=== PATIENT | female | born 1965 | race Caucasian/White ===

== ENCOUNTER → 2019-04-11 09:04 | Outpatient (CLI) | payer OTHER, SELFPAY | PROVIDERS: PCP Internal Medicine; Visit Provider Internal Medicine | DX: Z12.31 Encounter for screening mammogram for malignant neoplasm of breast (principal); Z53.9 Procedure and treatment not carried out, unspecified reason ==

== ENCOUNTER → 2019-04-30 08:33 | Outpatient (CLI) | payer OTHER, SELFPAY ==
--- NOTE | 2019-04-30 | DI.US.S_ITS ---
LIMITED ULTRASOUND OF RIGHT BREAST: 04/30/2019 CLINICAL: Palpable right breast lumps. Comparison is made to exams dated: 04/30/2019 mammogram, 07/14/2015 mammogram, 07/20/2013 mammogram, 10/07/2011 mammogram, and 01/12/2008 mammogram - [facility]. Real-time and Doppler ultrasound of the right breast lower outer quadrant were performed. Suazo scale images of the real-time examination were reviewed. Targeted ultrasound at the site of the patient's palpable abnormality in the right breast at 6:30 position 5 cm from the nipple demonstrates oval indistinct heterogeneously hypoechoic tissue entirely within the skin layer of the right breast, measuring 0.5 x 0.4 x 0.2 cm in size. There is no vascularity in this area on Doppler ultrasound. No suspicious solid mass is identified. Targeted ultrasound at the site of the patient's palpable abnormality in the right breast at 6:30 position 2 cm from the nipple demonstrates a 1.5 x 1.2 x 0.7 cm oval circumscribed mass that is isoechoic to adjacent fat and demonstrates no vascularity on Doppler ultrasound. No suspicious solid mass is identified. IMPRESSION: BENIGN 1. 0.5 cm oval indistinct hypoechoic tissue entirely within the skin layer of the right breast at 6:30 position 5 cm from the nipple likely represents the sequela of a sebaceous cyst or skin edema from a resolving cyst/infection. This correlates with the site of the patient's palpable abnormality. No suspicious mass or abnormality is identified in the area of concern as indicated by the patient. Recommend clinical followup for further evaluation and management of the patient's symptoms. 2. 1.5 cm oval circumscribed mass isoechoic to adjacent fat in the right breast at 6:30 position 2 cm from the nipple likely represents a prominent fat lobule versus lipoma. This correlates with the site of the patient's palpable abnormality. No suspicious mass or abnormality is identified in the area of concern as indicated by the patient. Recommend clinical followup for further evaluation and management of the patient's symptoms. 3. No ultrasound evidence of malignancy in the imaged areas of the right breast. Return to annual screening mammography schedule recommended. The patient is advised to monitor her breasts and to return sooner for re-evaluation should she feel anything grow or change. This exam was interpreted at Station ID: [id number]. Electronically Signed By: Kwadwo Ho M.D. ecl/:04/30/2019 11:22:02 letter sent: Clinical Evaluation Ultrasound BI-RADS: 2 Benign
--- NOTE | 2019-04-30 | DI.MG.S_ITS ---
BILATERAL DIGITAL DIAGNOSTIC MAMMOGRAM 3D/2D: 04/30/2019 CLINICAL: Palpable right breast lumps, per patient. Comparison is made to exams dated: 07/14/2015 mammogram, 07/20/2013 mammogram, and 10/07/2011 mammogram - [facility]. The tissue of both breasts is heterogeneously dense. This may lower the sensitivity of mammography. There is a triangular marker overlying the skin of the lower outer right breast at anterior depth at the site of the patient's reported palpable abnormality. There is no underlying mammographic abnormality. There is a triangular marker overlying the skin of the lower outer right breast at middle depth at the site of the patient's reported palpable abnormality. There is no underlying mammographic abnormality. No significant masses, calcifications, or other findings are seen in either breast. IMPRESSION: INCOMPLETE: NEEDS ADDITIONAL IMAGING EVALUATION 1) No mammographic abnormality to correlate with the site of the patient's reported focal palpable abnormality of the lower outer right breast at anterior depth. Targeted diagnostic ultrasound recommended for further evaluation, which will be performed immediately following this exam. 2) No mammographic abnormality to correlate with the site of the patient's reported focal palpable abnormality of the lower outer right breast at middle depth. Targeted diagnostic ultrasound recommended for further evaluation, which will be performed immediately following this exam. This exam was interpreted at Station ID: [id number]. NOTE: For mammograms, a report in lay terms will be sent to the patient. Approximately 15% of breast malignancies will not be visualized mammographically. In the management of a palpable breast mass, a negative mammogram must not discourage biopsy of a clinically suspicious lesion. Electronically Signed By: Kwadwo Ho M.D. ecl/:04/30/2019 10:10:16 ACR BI-RADS Category 0: Incomplete [id number]
== END ==
PROVIDERS: PCP Internal Medicine; Visit Provider Internal Medicine
DX: R92.8 Other abnormal and inconclusive findings on diagnostic imaging of breast (principal); N63.13 Unspecified lump in the right breast, lower outer quadrant
CPT/HCPCS: 76642; 77066; G0279

== ENCOUNTER → 2020-10-20 11:39 | Outpatient (CLI) | payer OTHER, SELFPAY ==
--- NOTE | 2020-10-20 | DI.MG.S_ITS ---
BILATERAL DIGITAL SCREENING MAMMOGRAM 3D/2D WITH CAD: 10/20/2020 CLINICAL: Routine screening. Comparison is made to exams dated: 04/30/2019 mammogram, 07/14/2015 mammogram, and 07/20/2013 mammogram - [facility]. The tissue of both breasts is heterogeneously dense. This may lower the sensitivity of mammography. Current study was also evaluated with a Computer Aided Detection (CAD) system. No significant masses, calcifications, or other findings are seen in either breast. There has been no significant interval change. IMPRESSION: NEGATIVE There is no mammographic evidence of malignancy. A 1 year screening mammogram is recommended. This exam was interpreted at Station ID: [id number]. NOTE: For mammograms, a report in lay terms will be sent to the patient. Approximately 15% of breast malignancies will not be visualized mammographically. In the management of a palpable breast mass, a negative mammogram must not discourage biopsy of a clinically suspicious lesion. Electronically Signed By: Foster collado/kristy:10/21/2020 08:58:21 letter sent: Normal Exam ACR BI-RADS Category 1: Negative [id number]
== END ==
PROVIDERS: PCP Internal Medicine; Referring Provider Internal Medicine; Visit Provider Internal Medicine
DX: Z12.31 Encounter for screening mammogram for malignant neoplasm of breast (principal)
CPT/HCPCS: 77063; 77067

== ENCOUNTER → 2021-01-26 10:25 | Outpatient (CLI) | payer OTHER, SELFPAY ==
--- NOTE | 2021-01-26 10:27 | DI.US.S_ITS ---
PROCEDURE: US THYROID INDICATIONS: Nontoxic single thyroid nodule TECHNIQUE: Real-time scanning was performed of the thyroid gland, with image documentation. COMPARISON: [facility], US, THYROID, 09/22/2015, 10:38. FINDINGS: Right: Thyroid lobe measures 4.8 x 1.6 x 1.5 cm, and is homogeneous in echotexture. Left: Thyroid lobe measures 6.2 x 3.0 x 2.3 cm, and is homogenous in echotexture. Isthmus: 3-4 mm thick. Nodule number: 1 Location: Mid left lobe Size: 4.0 x 3.7 x 2.3 cm. Previously this measured 2.8 x 2.4 x 1.6 Composition: Predominantly solid Echogenicity: Isoechoic Shape: wider than tall. Margins: Smooth Echogenic foci: None Total points: 3 ACR TI-RADS category: Mildly suspicious IMPRESSION: Interval increase in size of mildly suspicious mid left lobe nodule. Recommend ultrasound-guided FNA for further assessment. ACR TI-RADS definitions and recommendations: TI-RADS 1 (benign): 0 points. FNA not needed. TI-RADS 2 (not suspicious): 2 points. FNA not needed. TI-RADS 3 (mildly suspicious): 3 points. * FNA if 2.5 cm or larger, follow up if 1.5 cm or larger (at 1, 3, and 5 years). TI-RADS 4 (moderately suspicious): 4-6 points. * FNA if 1.5 cm or larger, follow up if 1 cm or larger (at 1, 2, 3, and 5 years). TI-RADS 5 (highly suspicious): 7 points or more. * FNA if 1 cm or larger, follow up if 0.5 cm or larger (every year for 5 years). Dictated by: Ori Lopez M.D. on 01/26/2021 at 15:51 Approved by: Ori Lopez M.D. on 01/26/2021 at 15:53
== END ==
PROVIDERS: PCP Internal Medicine; Referring Provider Internal Medicine; Visit Provider Internal Medicine
DX: E04.1 Nontoxic single thyroid nodule (principal)
CPT/HCPCS: 76536

== ENCOUNTER → 2021-02-19 09:05 | Outpatient (CLI) | payer OTHER, SELFPAY ==
--- NOTE | 2021-02-19 | PATH_ITS ---
Note [facility] Accession Number: [id number] TESTS RESULT FLAG UNITS REF RANGE LAB Clinician Provided Cytology Information No. of containers..01 Other (Miscellaneous) No. of containers..00 Previously Prepared Cytology Slide LEFT THYROID NODULE DIAGNOSIS: 01 LEFT THYROID NODULE, FINE NEEDLE ASPIRATION. NEGATIVE FOR MALIGNANT CELLS. ADEQUATE FOR EVALUATION. FOLLICULAR GROUPS ARE PRESENT. BENIGN FOLLICULAR (GOITEROUS) NODULE (B[place]ESDA CATEGORY II), SEE COMMENT. COMMENT: MICROSCOPIC EXAMINATION REVEALS A MILDLY CELLULAR ASPIRATE, COMPOSED OF COLLOID AND FOLLICULAR GROUPS WITH FOCAL HURTHLE CELL CHANGES, WITHOUT SIGNIFICANT CYTOLOGIC OR ARCHITECTURAL ATYPIA. THESE FINDINGS SUPPORT A BENIGN FOLLICULAR (GOITEROUS) NODULE. CORRELATION WITH CLINICAL AND RADIOGRAPHIC FINDINGS IS RECOMMENDED. ACCORDING TO THE [place] REPORTING SYSTEM FOR THYROID CYTOPATHOLOGY, THE RISK OF MALIGNANCY IN THE CATEGORY BENIGN-CATEGORY II IS 0-3%; THEREFORE RECOMMEND CONTINUED ULTRASOUND SURVEILLANCE WITH REPEAT FNA IF THE NODULE SIGNIFICANTLY INCREASES IN SIZE. Pathologist ICD10: 01 E04.1 01 Nguyen Coronado MD, Pathologist NPI- [id number] 01 Fidel Arellano, Drum Reel Cutter ([facility]) 01 30 CC, RED, CLEAR RECIEVED: IN CYTOLYT WITH 5 ALCOHOL FIXED AND 5 QUICK STAINED SLIDES ALSO 1 RNA VIAL WAS RECEIVED FOR FURTHER TESTING. /[facility] 02/20/2021 0713 Local FLAG LEGEND: L-Low Normal,H-High Normal,LL-Alert Low,HH-Alert High <-Panic Low,>-Panic High,A-Abnormal,AA-Critical Abnormal Performed at: 01 =Z [facility] [address], [place] [address] Foster Meyer MD, Performed at: 01 [facility] [address], [place], [place] [id number] MD Foster Meyer MD Phone: [phone]
--- NOTE | 2021-02-19 09:08 | DI.US.S_ITS ---
PROCEDURE: US FINE NEEDLE ASPIRATION INDICATIONS: NODULE TECHNIQUE: The indications, alternatives, benefits, risks, and complications of the procedure were explained to the patient. Written informed consent was obtained and placed in the chart. The thyroid region was examined sonographically and a site was chosen for ultrasound guided percutaneous sampling. The skin was prepared and draped in the usual fashion, and anesthetized with 1% lidocaine infiltrated from the skin down to the thyroid gland. Multiple passes were then performed, with contents emptied into an appropriate pathology specimen container. A bandage was applied to the area of access at completion of the study. COMPARISON: None. FINDINGS: Location(s) of lesion(s) sampled: Left lobe inferior pole Hurricane: 22 and 25 gauge hypodermic needles. Number of passes: 7 Medications: 1% lidocaine for local anaesthesia. Complications: None. IMPRESSION: Successful ultrasound-guided thyroid nodule fine needle aspiration, with cytology results pending. Please see chart below for management recommendations based on cytology results. [facility] ReportingRecommendationsNon-diagnostic* Repeat US-guided FNA, with on-site cytology evaluation if possible. * Repeated non-diagnostic nodules without high suspicion US features: close observation vs surgical consult. * Consider surgery if nodule has high suspicion US features, grows >20% in 2 dimensions on followup, or patient has clinical risk factors for malignancy. Benign* If nodule has high suspicion US features: repeat US and FNA within 12 months. * If nodule has low to intermediate suspicion US features: repeat US at 12-24 months. If nodule grows (20% increase in at least 2 dimensions, with minimal increase of 2 mm or >50% change in volume), or development of new suspicious US features, then repeat FNA or continue followup. * If nodule has very low suspicion US features: followup US at >24 months. Atypia of undetermined significance, follicular lesion of undetermined significanceRepeat FNA, molecular testing, followup US, or surgical consult.Follicular neoplasm, suspicious for follicular neoplasmSurgical consult; also consider molecular testing. Suspicious for malignancySurgical consult.MalignantSurgical consult. Dictated by: Ori Lopez M.D. on 02/19/2021 at 11:54 Approved by: Ori Lopez M.D. on 02/19/2021 at 11:55
== END ==
PROVIDERS: PCP Internal Medicine; Referring Provider Internal Medicine; Visit Provider Internal Medicine
DX: E04.1 Nontoxic single thyroid nodule (principal)
CPT/HCPCS: 10005

== ENCOUNTER → 2021-02-25 11:01 | Outpatient (CLI) | payer OTHER, SELFPAY ==
[2021-02-25 12:26] LABS: COVID19 -Nasal RAPID Negative (Negative)
== END ==
PROVIDERS: PCP Internal Medicine; Visit Provider Student in an Organized Health Care Education/Training Program
DX: Z20.822 Contact with and (suspected) exposure to COVID-19 (principal)
CPT/HCPCS: 87635

== ENCOUNTER 2021-02-27 11:55 | Day surgery (SDC) | payer OTHER, SELFPAY ==
[2021-02-27] VITALS (8 sets, daily range): BP systolic 100–119; BP diastolic 53–74; PULSE 54–68; RESP 14–18; TEMP 36.3–36.8; O2SAT 98–100
--- NOTE | 2021-02-27 | PATH_ITS ---
[facility] Accession Number: [id number] . 01 Material submitted: . cecum - CECAL POLYP BIOPSY, 2MM . 01 Diagnosis: Cecal Polyp, 2 mm, Biopsy: Colonic mucosa with no diagnostic abnormality, consistent with polypoid redundancy. Negative for serrated lesion, dysplasia or malignancy. Additional step sections examined. MRV 03/05/2021 1252 Local . 01 Electronically signed: . Alfredo Rodrigues MD, PhD, Pathologist NPI- [id number] . 01 Gross description: . The specimen is received in formalin, labeled cecal polyp and consists of a 0.5 x 0.3 x 0.2 cm marshall-pink fragment of soft tissue which is entirely submitted in cassette A1. (EA:[id number]) /MRV 03/03/2021 1610 Local . 01 Pathologist provided ICD-10: K63.5 . 01 CPT . 019534 Performed at: 01 [facility] [address], [place], [place] [id number] MD Foster Meyer MD Phone: [phone]
--- NOTE | 2021-02-27 08:43 | PM.PREOP ---
Pre-operative Note COVID-19 COVID-19 status: Negative Result date/Date tested (Pos, Neg/Pending): 02/25/21 Interval Note History & Physical reviewed/Exam performed by Physician: Yes Changes to H&P: No ASA Class (for procedural sedation): II
--- NOTE | 2021-02-27 08:43 | PM.OP.ENDO ---
Operative Date/Time/Diagnoses Date of procedure: 02/27/21 Procedure Notes SCOAP/Timeout: 1:22 p.m. Procedure in detail: ENDOSCOPIST: Steffi Lara MD Sedation RN: Bernarda Weldon RN Sedation start time: 1:23 p.m. Sedation end time: 4:42 p.m. PROCEDURE: Colonoscopy with cold biopsy INDICATIONS: 1. Family history of colon cancer 2. Screening for colon cancer MEDICATION: Levsin 0.125 mg sublingual, incremental doses of Versed and fentanyl until appropriate level sedation achieved. ASA CLASS: 2 CECAL WITHDRAWAL TIME: 13 minutes COMPLICATIONS: None. EXTENT OF PROCEDURE: Cecum. QUALITY OF PREP: Good with portions of liquid stool. PROCEDURE: Prior to insertion of the colonoscope, a digital rectal examination was accomplished with circumferential palpation of the distal rectal mucosa without significant findings being noted. The high-definition pediatric colonoscope was passed into the rectum in the usual fashion and advanced over to the cecum without difficulty. The ileocecal valve, appendiceal stoma, and medial wall all could be inspected and a 2 mm polyp was seen and removed with cold biopsy forceps. ASCENDING COLON: As the colonoscope was withdrawn, care was taken to expose and inspect the haustral folds and no abnormalities were seen. HEPATIC FLEXURE: Normal, no polyps, diverticula or other abnormalities. TRANSVERSE COLON: Normal, no polyps, diverticula or other abnormalities. DESCENDING COLON: Normal, no polyps, diverticula or other abnormalities. SIGMOID COLON: Normal, no polyps, diverticula or other abnormalities. RECTUM: Normal. J maneuver was produced. There was no significant perianal disease. The J maneuver was broken. The remainder of the rectum was inspected and there was no external hemorrhoid disease. The scope was withdrawn. IMPRESSION: 1. Cecal polyp x1, 2 mm, removed with cold biopsy forceps PLAN: 1. Follow-up in clinic status post pathology results. The possibility of a missed lesion including a malignancy has been discussed with the patient previously. Potential alarm symptoms have been discussed and should be reported immediately.
[2021-02-27] MEDS: HYOSCYAMINE 0.125 MG TABLET PO (12:43)
[2021-02-27] MEDS: LACTATED RINGERS 1,000 ML 200 ML IV (12:43)
[2021-02-27] MEDS: MIDAZOLAM 5 MG/5 ML VIAL IV (13:19)
[2021-02-27] MEDS: fentaNYL 250 MCG/5 ML INJ IV (13:20)
== END 2021-02-27 14:37 | disposition home or self-care (01) ==
PROVIDERS: PCP Internal Medicine; Referring Provider Student in an Organized Health Care Education/Training Program; Visit Provider Student in an Organized Health Care Education/Training Program
PROC: 0DJD8ZZ Inspection of Lower Intestinal Tract, Via Natural or Artificial Opening Endoscopic (ICD-10-PCS; CPT 45378; principal; 2021-02-27 13:00)
DX: Z12.11 Encounter for screening for malignant neoplasm of colon (principal); Z80.0 Family history of malignant neoplasm of digestive organs; K63.5 Polyp of colon
CPT/HCPCS: 45380; J2250; J3010

== ENCOUNTER → 2021-11-05 11:16 | Outpatient (CLI) | payer OTHER, SELFPAY ==
--- NOTE | 2021-11-05 | DI.MG.S_ITS ---
BILATERAL DIGITAL SCREENING MAMMOGRAM 3D/2D WITH CAD: 11/05/2021 CLINICAL: Routine screening. Comparison is made to exams dated: 10/20/2020 mammogram, 04/30/2019 mammogram, and 07/14/2015 mammogram - [facility]. The tissue of both breasts is heterogeneously dense. This may lower the sensitivity of mammography. Current study was also evaluated with a Computer Aided Detection (CAD) system. No significant masses, calcifications, or other findings are seen in either breast. There has been no significant interval change. IMPRESSION: NEGATIVE There is no mammographic evidence of malignancy. A 1 year screening mammogram is recommended. This exam was interpreted at Station ID: [id number]. NOTE: For mammograms, a report in lay terms will be sent to the patient. Approximately 15% of breast malignancies will not be visualized mammographically. In the management of a palpable breast mass, a negative mammogram must not discourage biopsy of a clinically suspicious lesion. Electronically Signed By: Shari mansfield/kristy:11/05/2021 11:59:30 letter sent: Normal Exam ACR BI-RADS Category 1: Negative 3341F
== END ==
PROVIDERS: PCP Internal Medicine; Referring Provider Internal Medicine; Visit Provider Internal Medicine
DX: Z12.31 Encounter for screening mammogram for malignant neoplasm of breast (principal)
CPT/HCPCS: 77063; 77067

== ENCOUNTER → 2022-08-27 11:55 | Outpatient (CLI) | payer OTHER, SELFPAY ==
--- NOTE | 2022-08-27 11:56 | DI.US.S_ITS ---
PROCEDURE: US PELVIC COMPLETE INDICATIONS: ABDOMINAL BLOATING; ABDOMINAL PAIN TECHNIQUE: Real-time scanning was performed of the pelvic organs, with image documentation. Additional endovaginal scanning was necessary due to incomplete visualization of the adnexal and endometrial structures by transabdominal scanning. COMPARISON: [facility], , PELVIC COMPLETE, 08/19/2008, 3:27. FINDINGS: Uterus: Uterus is anteverted and measures 11.3 x 7.4 x 8.3 cm. The myometrium is heterogeneous. The endometrium is not visualized. There are multiple uterine fibroids including a right posterior intramural fibroid which measures 1.4 x 1.6 x 1.9 cm, a left posterior subserosal fibroid which measures 3.6 x 2.7 x 3.5 cm and a left intramural fibroid which measures 4.8 x 3.5 x 4.9 cm. Although fibroids were visualized on the comparison ultrasound dated August 19, 2008, it is unclear which of the previous fibroids correspond to the current study. 2 of these fibroids appear increased in size when compared with the prior study. Ovaries: The right ovary measures 2.2 x 1.4 x 2.1 cm, with a calculated ovarian volume of 3.4 cc. The left ovary measures is not visualized. Other: No pathologic free abdominal or pelvic fluid. IMPRESSION: 1. Fibroid uterus. When compared with the study from 2007, 2 of the fibroids have likely increased in size. Please note, continued growth of the fibroids post menopause may warrant further characterization with gynecologic protocol MRI. 2. The endometrium is not visualized. If there is a history of postmenopausal bleeding, further characterization with gynecologic protocol MRI is recommended. We strive to produce accurate, complete, and clear reports of imaging services. To assist us in improving patient care, this report was composed using standard report templates and voice recognition software. Therefore, it may contain abnormal punctuation, insertions and/or omissions. Occasional wrong-word or sound-alike substitutions may occur. Though we review the report and make efforts to correct it, we do recommend that the report be read carefully in proper context to recognize any text inaccuracies. Dictated by: Luisa Husain M.D. on 08/27/2022 at 15:37 Approved by: Luisa Husain M.D. on 08/27/2022 at 15:41
--- NOTE | 2022-08-27 11:56 | DI.US.S_ITS ---
PROCEDURE: US ABDOMEN COMPLETE INDICATIONS: ABDOMINAL BLOATING; ABDOMINAL PAIN TECHNIQUE: Real-time scanning was performed of the abdominal and retroperitoneal organs, with image documentation. COMPARISON: None. FINDINGS: Liver: Visualized portions of the liver appear normal in size and homogeneous in echotexture. Gallbladder: Gallbladder is normal in sonographic appearance without gallstones, gallbladder wall thickening, pericholecystic fluid, or abnormal sonographic Gomez's. Biliary ducts: Intrahepatic bile ducts are non-dilated. Extrahepatic bile duct caliber measures 3 mm. Normal is 6-7 mm or less in diameter, or 10 mm or less post-cholecystectomy. Pancreas: Pancreas not well visualized secondary to overlying bowel gas. Spleen: Spleen is normal in size and homogeneous in echotexture. Kidneys: Kidneys are normal in size and echotexture. Right kidney measures 11.2 cm long; left kidney measures 11.7 cm long. No hydronephrosis or nephrolithiasis. No solid masses. Aorta: Visualized aorta is normal in caliber at less than 3 cm. Iliacs: Proximal common iliac arteries are normal in caliber at less than 2.5 cm. IVC: Intrahepatic inferior vena cava is patent. Miscellaneous: No free abdominal fluid. IMPRESSION: Unremarkable sonographic evaluation of the abdomen. No acute sonographic abnormalities. Dictated by: Levon Peace M.D. on 08/27/2022 at 14:08 Approved by: Levon Peace M.D. on 08/27/2022 at 14:10
== END ==
PROVIDERS: PCP Internal Medicine; Referring Provider Internal Medicine; Visit Provider Internal Medicine
DX: R10.9 Unspecified abdominal pain (principal); R14.0 Abdominal distension (gaseous)
CPT/HCPCS: 76700; 76830; 76856

== ENCOUNTER → 2022-09-17 17:42 | Outpatient (CLI) | payer OTHER, SELFPAY ==
--- NOTE | 2022-09-17 17:43 | DI.MRI.S_ITS ---
PROCEDURE: MR PELVIS WO/W CON INDICATIONS: Leiomyoma of uterus, unspecified TECHNIQUE: Coronal HASTE, sagittal breath-hold T2 FSE; axial T1 FSE with and without fat saturation through the pelvis. Optional long- and short-axis uterine nonbreath-hold T2 FSE through the uterus. Sagittal or axial dynamic VIBE during administration of contrast. Post-contrast axial or coronal VIBE/2-D FLASH with fat saturation from the iliac crests to the symphysis. Optional diffusion weighted imaging and ADC may be performed. COMPARISON: [facility], US, US PELVIC COMPLETE, 08/27/2022, 12:21. FINDINGS: Image quality: Excellent. Uterus: The uterus is mildly enlarged secondary to several fibroids and measures 8.7 x 7.5 x 8.2 cm. The margin is lobulated. There are several myometrial and subserosal fibroids. The largest is anterior myometrial measuring 4.5 x 4.0 x 4.0 cm. The next largest is left posterior fundal measuring roughly 3.7 x 3.2 x 3.2 cm. There are seven other smaller fibroids. These demonstrate low T2 signal and, postcontrast are predominantly hypoenhancing, occasionally isoenhancing to uterine myometrium. The two dominant fibroids obscure the junctional zone and endometrium which is only seen in the cervix and lower uterine segment. The cervix appears normal with a nabothian cyst measuring 9 mm. There is no intrinsic T1 signal in any mass to suggest hemorrhage or proteinaceous degeneration. Adnexa: The right ovary has a normal appearance, immediately adjacent to the uterus. The left ovary is also normal, more anterior and superior in the pelvis and is normal containing two subcentimeter follicles. No suspicious adnexal masses. Urinary system: Bladder wall is normal in thickness. Distal ureters are non distended. Vaginal canal and urethra appear normal in morphology. Nodes and vessels: No pelvic or inguinal adenopathy by size criteria. Iliac vessels are normal in size. Bowel and peritoneum: No pathologic free pelvic fluid. Inferior colon and small bowel loops are normal in caliber. Soft tissues: No inguinal hernias. No findings of pelvic floor incompetence in the absence of provocation. Bones: Marrow demonstrates normal overall signal. IMPRESSION: 1. Multiple uterine fibroids without suspicious features. 2. Normal ovaries for postmenopausal status. 3. Obscuration of the endometrial stripe and junctional zone by fibroids. Dictated by: Shari Wyatt M.D. on 09/18/2022 at 10:49 Approved by: Shari Wyatt M.D. on 09/18/2022 at 11:05
== END ==
PROVIDERS: PCP Internal Medicine; Referring Provider Internal Medicine; Visit Provider Internal Medicine
DX: D25.2 Subserosal leiomyoma of uterus (principal); R14.0 Abdominal distension (gaseous); K59.00 Constipation, unspecified
CPT/HCPCS: 72197; A9579

== ENCOUNTER → 2022-11-07 11:14 | Outpatient (CLI) | payer OTHER, SELFPAY ==
[2022-11-07 12:06] LABS: Influenza A - CEPHEID Flu A NEGATIVE (NEGATIVE); Influenza B - CEPHEID Flu B NEGATIVE (NEGATIVE); Respiratory Syncytial Virus Negative (Negative)
[2022-11-07 12:08] LABS: COVID-19 CEPHEID 4-PLEX PCR Negative (Negative)
== END ==
PROVIDERS: PCP Internal Medicine; Visit Provider Student in an Organized Health Care Education/Training Program
DX: R05.1 Acute cough (principal); Z20.822 Contact with and (suspected) exposure to COVID-19
CPT/HCPCS: 0241U

== ENCOUNTER 2022-11-29 11:06 | Emergency (ER) | payer OTHER, SELFPAY ==
[2022-11-29 11:14] VITALS: BP 148/67; PULSE 77; RESP 16; TEMP 36.9; O2SAT 97; BMI 30.1
--- NOTE | 2022-11-29 11:14 | DI.RAD.S_ITS ---
PROCEDURE: XR SHOULDER LT MIN 2V INDICATIONS: r/o shoulder fx/dislocation TECHNIQUE: One view of the shoulder were acquired. COMPARISON: [facility], MYAH, XR SHOULDER LT MIN 2V, 11/29/2022, 11:48. FINDINGS: No fracture identified. IMPRESSION: No evidence of fracture. Dictated by: Lio Patel M.D. on 11/29/2022 at 12:11 Approved by: Lio Patel M.D. on 11/29/2022 at 12:12
--- NOTE | 2022-11-29 11:21 | ED_ITS ---
HPI - Extremity Injury (Upper) General Chief Complaint: Extremity Injury, Upper Stated Complaint: fell and hurt lt shoulder Time Seen by Provider: 11/29/22 11:18 History of Present Illness HPI narrative: Patient brought here by spouse. Patient is right-handed. Patient complains of left shoulder pain. No numbness tingling or weakness to the upper extremity or hand. Patient also has small laceration to the mid mucosal surface of the lower lip. No dental pain or injury. Patient and were trying to cut down a tree. She was pulling on a branch using a rope it slipped and she fell onto the ground. No loss of consciousness. Denies any other injuries. No recent illness no cough cold congestion fever chills. NPO since last night no nausea vomiting or diarrhea Related Data Previous Rx's Medication Instructions Recorded benzonatate 100 mg capsule 100 mg PO TID PRN cough 7 days #21 11/07/22 caps Allergies Allergy/AdvReac Type Severity Reaction Status Date / Time No Known Drug Allergies Allergy Verified 12/01/22 11:11 Review of Systems Review of Systems Narrative: GENERAL: negative chills, fatigue, malaise, fever, sweats. HEENT: negative sinus pain, ear pain, sore throat RESPIRATORY: negative dyspnea, cough CARDIOVASCULAR: negative chest pain, palpitations GASTROINTESTINAL: negative nausea, vomiting, abdominal pain : negative dysuria, frequency, hematuria MUSCULOSKELETAL: Positive muscle or bony pain SKIN: negative rash, skin lesions NEUROLOGIC: negative weakness, numbness ROS Unobtainable: All systems reviewed & are unremarkable except as noted in HPI and below Patient History Medical History (Updated 12/07/22 @ 15:04 by Berenice Shelton RN) Anemia Anxiety Glaucoma HLD (hyperlipidemia) Lichen planus Lichen sclerosus Thyroid nodule Surgical History (Updated 12/07/22 @ 15:04 by Berenice Shelton RN) Hx of colonoscopy (2014) Social History household members: spouse Smoking Status: Never smoker alcohol intake: current Smoking Status: Never smoker alcohol intake frequency: 0-2 drinks per day Substance Use Type: does not use Exam Narrative Exam Narrative: GENERAL: in no distress, not toxic not dyspneic HEAD: Normocephalic. EYES: Pupils equal round No scleral icterus. ENT: Mucous membranes moist. There is a 5 mm flap like laceration at the mid lower lip on the mucosal side. It does not cross the vermilion border. It is 3 mm deep. Nontender upper and lower teeth, no malocclusion or trismus. Denies any jaw pain. NECK: Trachea midline. CARDIOVASCULAR: Regular rate and rhythm without murmurs RESPIRATORY: Clear to auscultation. Breath sounds equal bilaterally. No wheezes, rales, or rhonchi. GASTROINTESTINAL: Abdomen soft, non-tender EXTREMITIES: Examination left upper extremity. There is a drop off anteriorly. Hand is warm soft and pink with strong hydramatic specialist and radial pulse with light touch intact deltoid and fingertips and thumb. Nontender wrist and elbow. Patient keeps arm abducted to the torso. NEURO: AOx4. SKIN: Warm and dry PSYCH: Not anxious, is cooperative Initial Vital Signs Initial Vital Signs: Vital Signs Temperature 98.4 F 11/29/22 11:14 Pulse Rate 77 11/29/22 11:14 Respiratory Rate 16 11/29/22 11:14 Blood Pressure 148/67 H 11/29/22 11:14 Pulse Oximetry 97 11/29/22 11:14 Oxygen Delivery Method 11/29/22 11:14 Procedures Orthopedic Joint Reduction Joint #1: Time of procedure: 11:56 Time Out Performed: Yes Side: left Joint Reduction Location: shoulder Analgesia: other (Fentanyl 75 mcg/Dilaudid 1 mg) Shoulder Technique Used (if applicable): traction/counter-traction Technique used: traction/counter-traction Post-reduction neuro exam: intact Post-reduction vascular: intact Post Reduction X-Ray Obtained: Yes Post Reduction X-Ray Results: reduced Splint Applied: Yes Patient Tolerated Procedure: Well Additional Comments: Note procedural sedation required Course Course Course Narrative: No new issues during course of stay Orders Ordered: Discontinued Medications Fentanyl (Fentanyl 100 Mcg/2 Ml Inj) 100 mcg IV NOW ONE Stop: 11/29/22 11:19 Last Admin: 11/29/22 11:53 Dose: 75 mcg Documented By: CTS Hydromorphone HCl (Hydromorphone 1 Mg Inj) 1 mg IV NOW ONE Stop: 11/29/22 11:45 Last Admin: 11/29/22 11:54 Dose: 1 mg Documented By: CTS Reevaluation(s) Reevaluation #1: Reviewed results with patient and and agree for discharge home. Return precautions reviewed with him. I did speak with Dr. Brian and treatment plan agreeable with patient and family. Return precautions reviewed with them. Pain is controlled. Time: 12:21 Vital Signs Vital signs: Vital Signs - 8 hr 11/29/22 11:14 11/29/22 11:49 Temperature 98.4 F Pulse Rate 77 78 Respiratory Rate 16 16 Blood Pressure 148/67 H Pulse Oximetry 97 98 Oxygen Delivery Method Room Air Room Air MDM - Extremity Injury (Upper) Differential Diagnosis Differential diagnosis: Likely dislocation of shoulder and other (Shoulder fracture/humeral fracture) Imaging Data Extremity x-ray #1: Radiologist's Impression: [address] [address] XRay Report Signed Patient: Debbie Cartagena MR#: [id number] : 1965 Acct:[id number] Age/Sex: 57 / F Date of Service: 11/29/22 Loc: ED Accession Number: [id number] ?? Procedure: XR shoulder LT min 2V Ordering Provider: Pedro Pablo Miller MD PROCEDURE:? XR SHOULDER LT MIN 2V ? INDICATIONS:? r/o shoulder fx/dislocation ? TECHNIQUE:? One view of the shoulder were acquired.? ? COMPARISON:? [facility], XR SHOULDER LT MIN 2V, 11/29/2022, 11:48. ? FINDINGS:? ? No fracture identified. ? IMPRESSION:? No evidence of fracture. ? ? Dictated by: Lio Patel M.D. on 11/29/2022 at 12:11 ? ? Approved by: Lio Patel M.D. on 11/29/2022 at 12:12 ? Extremity x-ray #2: Radiologist's Impression: [address] [address] XRay Report Signed Patient: Debbie Cartagena MR#: [id number] : 1965 Acct:[id number] Age/Sex: 57 / F Date of Service: 11/29/22 Loc: ED Accession Number: [id number] ?? Procedure: XR shoulder LT min 2V Ordering Provider: Pedro Pablo Miller MD PROCEDURE:? XR SHOULDER LT MIN 2V ? INDICATIONS:? Post reduction ? TECHNIQUE:? 3 views of the shoulder were acquired.? ? COMPARISON:? [facility], CR, XR SHOULDER LT MIN 2V, 11/29/2022, 11:36. ? FINDINGS/IMPRESSION:? Successful interval reduction. ? Dictated by: Lio Patel M.D. on 11/29/2022 at 12:13 ? ? Approved by: Lio Patel M.D. on 11/29/2022 at 12:14 ? MDM Narrative Medical decision making narrative: Patient brought here by spouse. Patient is right-handed. Patient complains of left shoulder pain. No numbness tingling or weakness to the upper extremity or hand. Patient also has small laceration to the mid mucosal surface of the lower lip. No dental pain or injury. Patient and were trying to cut down a tree. She was pulling on a branch using a rope it slipped and she fell onto the ground. No loss of consciousness. Denies any other injuries. Patient injury is concerning for fracture/dislocation, differential diagnosis as above includes but not limited to shoulder fracture/dislocation. X-ray has been ordered to evaluate. IV medication establish for pain control. At this time patient does agree for proper pain control to try for reduction passively using head of bed and flex knee and hip procedure/technique to allow for passive reduction of the left shoulder. No blood work indicated this time. Patient otherwise neurovascularly intact. The small laceration to the mucosal surface of the lower lip does not indicate for suturing as I explained with patient it will likely cause tearing of the mucosa lip and may worsen cosmetically and healing process. Dietary changes/soft diet reviewed with patient and . They agree. Tetanus is up-to-date. 12:12 p.m.. Spoke with Orthopedics, Dr. Brian, he has reviewed both x-rays of the shoulder. Patient can follow up in the office, use a sling for discharge and home use. Appropriate for discharge home. I did review images with Orthopedics. No blood work indicated. Pain is controlled at time of discharge. Patient agrees for discharge. Has a fence post driver, . Return precautions reviewed with him. Patient may continue Tylenol ibuprofen. Patient tolerating sling very well. Discharge Plan Departure Patient Disposition: Home Clinical Impression: Closed dislocation of left shoulder Instructions: DI for Shoulder Dislocation Activity Restrictions/Additional Instructions: Please use sling for comfort and immobilization until you see Dr. Brian in the office. Call tomorrow for office time as today is a holiday and office is not open. May continue ibuprofen or Tylenol for pain. Do not raise your hand above your head or behind your back. Return if worse if any questions or concerns Prescriptions: No Action benzonatate 100 mg capsule 100 mg PO TID PRN (Reason: cough) 7 Days Qty: 21 1RF Referrals: Billy Brian MD [Physician] - Fiorella Toro ARNP [Primary Care Provider] -
--- NOTE | 2022-11-29 11:47 | DI.RAD.S_ITS ---
PROCEDURE: XR SHOULDER LT MIN 2V INDICATIONS: Post reduction TECHNIQUE: 3 views of the shoulder were acquired. COMPARISON: [facility], CR, XR SHOULDER LT MIN 2V, 11/29/2022, 11:36. FINDINGS/IMPRESSION: Successful interval reduction. Dictated by: Lio Patel M.D. on 11/29/2022 at 12:13 Approved by: Lio Patel M.D. on 11/29/2022 at 12:14
[2022-11-29 11:49] VITALS: PULSE 78; RESP 16; O2SAT 98
--- NOTE | 2022-11-29 11:51 | PC.NURSE ---
pt medicated with 75mcg fentanyl and 1mg dilaudid. pt set up to passively reduce with her wrists wrapped with coban, sitting high fowlers with wrists wrapped behind L knee. Dr Miller at bedside and pt reduced successfully. XR in room for post reduction imaging. pt states immense improvement in pain. 2+ pulse +CMS. Pt advised to not lift arm above shoulder level.
[2022-11-29] MEDS: fentaNYL 100 MCG/2 ML INJ IV (11:53)
[2022-11-29] MEDS: HYDROMORPHONE 1 MG INJ IV (11:54)
== END 2022-11-29 12:25 | disposition home or self-care (01) ==
PROVIDERS: Emergency Provider Emergency Medicine; PCP Internal Medicine
DX: S43.005A Unspecified dislocation of left shoulder joint, initial encounter (principal); S01.511A Laceration without foreign body of lip, initial encounter; W18.30XA Fall on same level, unspecified, initial encounter
CPT/HCPCS: 23650; 36415; 73030; 96374; 99284; J1170; J3010

== ENCOUNTER → 2022-12-08 14:23 | Outpatient (CLI) | payer OTHER, SELFPAY ==
[2022-12-08 15:20] LABS: COVID19 -Nasal RAPID Negative (Negative)
== END ==
PROVIDERS: PCP Internal Medicine; Visit Provider Obstetrics & Gynecology
DX: Z01.812 Encounter for preprocedural laboratory examination (principal); Z20.822 Contact with and (suspected) exposure to COVID-19
CPT/HCPCS: 87635

== ENCOUNTER 2022-12-09 06:48 | Day surgery (SDC) | payer OTHER, SELFPAY ==
[2022-12-07 14:54] VITALS: BMI 30.6
[2022-12-09] VITALS (15 sets, daily range): BP systolic 82–133; BP diastolic 37–75; PULSE 53–75; RESP 10–18; TEMP 36–36.7; O2SAT 94–99; BMI 30.6
--- NOTE | 2022-12-09 | PATH_ITS ---
[facility] Accession Number: [id number] No. of containers..01 Tissue . 01 Material submitted: . uterus - BILATERAL TUBES,OVARIES,UTERUS,AND CERVIX . 01 Diagnosis: Cervix, Uterus, Bilateral Fallopian Tubes and Ovaries; Total Hysterectomy and Bilateral Salpingo-oophorectomy: Cervix: Mild, chronic cervicitis and tunnel clusters present. Endocervical glands with focal reactive tubal metaplasia present. Negative for dysplasia and malignancy. Endometrium: Predominantly non-proliferative to inactive endometrium without atypia, hyperplasia, and malignancy. Adenomyosis. Benign leiomyomas, intramural/subserosal, with hyalinized changes, without significant cytologic atypia, increased mitotic activity, or necrosis. Left fallopian tube and ovary: Benign fallopian tube and paratubal cysts. Benign ovary with cystic follicles. Right fallopian tube and right ovary: Benign fallopian tube without significant abnormalities. Benign ovary with surface inclusion cysts. Benign para-ovarian leiomyoma. Negative for malignancy. [facility] 12/13/2022 1511 Local . 01 Electronically signed: . Nguyen Coronado MD, Pathologist NPI- [id number] . 01 Gross description: . The specimen is received in formalin labeled with the patient's name, , and bilateral tubes, ovaries, uterus, and cervix, and consists of a fragmented uterus (212 grams, 11.9 x 9.2 x 5.5 cm in aggregate) with detached cervix (2.4 x 1.6 cm), attached left fallopian tube (4.2 x 0.8 cm), attached left ovary (3 grams, 1.8 x 1.2 x 1.0 cm), attached right fallopian tube (5.1 x 0.7 cm), and attached right ovary (4 grams, 2.4 x 1.0 x 1.0 cm). The ectocervix is marshall and roughened with a circular patent os measuring 0.3 cm in diameter. Orientation of the cervix cannot be determined. The parametrial margin is inked blue. The uterine serosa is marshall and smooth with a few areas of hemorrhage measuring up to 1.5 cm in greatest dimension. The endocervical canal has marshall herringbone mucosa and measures 3.3 cm in length with no areas of stricture grossly identified. The superior portion of the uterus is intact, and the portion of endometrial cavity measures 2.8 cm from cornu to cornu and 4.1 cm in length with marshall velvety endometrium that averages 0.1 cm thick. The myometrium is marshall and trabecular measuring up to 2.2 cm thick with multiple well-circumscribed white whorled nodules located intramurally, subserosally, and detached measuring up to 4.7 cm in greatest dimension. No hemorrhage, necrosis, or additional lesions are identified. . The left fallopian tube has marshall smooth serosa with multiple cystic structures measuring up to 0.2 cm in greatest dimension filled with cloudy serous fluid. Sectioning reveals an unremarkable stellate lumen. The left ovary has a marshall cerebriform external surface and sectioning reveals a thin smooth-walled cystic structure filled with clear serous fluid measuring 0.4 cm in greatest in dimension with no lesions identified. . The right fallopian tube has marshall smooth serosa with no cystic structures identified, and sectioning reveals an unremarkable stellate lumen. The right ovary has a yellow-marshall cerebriform cut surface and is significant for an adjacent marshall smooth firm nodule measuring 1.0 x 0.7 x 0.6 cm. Sectioning the ovary reveals a heterogeneous unremarkable physiologic cut surface, and sectioning the separate nodule reveals a white whorled cut surface. No additional lesions are identified. [employer] sections are submitted as follows: . A1: Cervix. A2: Anterior full-thickness section with nodule. A3: Posterior full-thickness section with nodule. A4-A5: [employer] nodules. A6: Serosa. A7: Left fallopian tube to include one-half of bisected fimbriae and cross-sections. A8: Left ovary. A9: Right fallopian tube to include one-half of bisected fimbriae and cross-sections. A10: Right ovary. A11: [employer] nodule adjacent to right ovary. ([id number]) /MRV 12/13/2022 1511 Local . 01 Pathologist provided ICD-10: D25.9, R10.2, N88.2 . 01 CPT . 933275 Specimen Comment: A courtesy copy of this report has been sent to [phone] Performed at: 01 [facility] [address] [place] [address] [address] [facility], [place], [place] [id number] MD Foster Meyer MD Phone: [phone]
[2022-12-09] MEDS: LACTATED RINGERS 1,000 ML 100 ML IV (07:15)
--- NOTE | 2022-12-09 07:37 | PM.PREOP ---
Pre-operative Note COVID-19 COVID-19 status: Negative Result date/Date tested (Pos, Neg/Pending): 12/08/22 Criteria for continued procedure: Non-surgical alternatives not available or appropriate per current SOC Interval Note History & Physical reviewed/Exam performed by Physician: Yes Changes to H&P: No
[2022-12-09] MEDS: CEFAZOLIN 2 GM/100 ML PREMIX 100 ML IV (08:05)
[2022-12-09] MEDS: BUPIVACAINE 0.5% W/ EPI (PF) 30 ML VIAL INJ (08:27)
--- NOTE | 2022-12-09 08:31 | SUR.OPER ---
Lithotomy on padded OR bed. [place] Pad Positioner under torso. Head on pillow, arms padded and tucked at sides. Legs secured in padded yellow fins stirrups.
[2022-12-09] MEDS: LACTATED RINGERS 1,000 ML 84 ML IV (09:12)
[2022-12-09] MEDS: ROPIVACAINE 0.2% PF 2 MG/ML 10ML AMP 20 ML INJ (09:23)
--- NOTE | 2022-12-09 09:46 | P.OP_ITS ---
Operative Date/Time/Diagnoses Date of procedure: 12/09/22 Time of procedure: 08:10 Pre-op diagnosis: Uterine fibroids Pelvic pressure Post-op diagnosis: same Procedure & Clinicians Procedure: Procedures Operation Date: 12/09/22 07:45 Actual Procedure Side Surgeon p Laparoscopic Total Hysterectomy w/ bilateral salingo-oophorectomy Not Applicable Ganga White MD Indications: Debbie is a 57 year old , LMP in her early 50s or presents with several month history pelvic pressure and discomfort.? She was seen back in 2006 for similar complaints and at that time was diagnosed with uterine fibroids.? A recent pelvic ultrasound performed 08/27/2022 which shows: FINDINGS:? ?? Uterus:? Uterus is anteverted and measures 11.3 x 7.4 x 8.3 cm. The myometrium is heterogeneous. ? The endometrium is not visualized.? There are multiple uterine fibroids including a right posterior intramural fibroid which measures 1.4 x 1.6 x 1.9 cm, a left posterior subserosal fibroid which measures 3.6 x 2.7 x 3.5 cm and a left intramural fibroid which measures 4.8 x 3.5 x 4.9 cm.? Although fibroids were visualized on the comparison ultrasound dated August 19, 2008, it is unclear which of the previous fibroids correspond to the current study.? 2 of these fibroids appear increased in size when compared with the prior study.? ? Ovaries:? The right ovary measures 2.2 x 1.4 x 2.1 cm, with a calculated ovarian volume of 3.4 cc. The left ovary measures is not visualized. ? Other:? No pathologic free abdominal or pelvic fluid. ? ? IMPRESSION:? ? 1. Fibroid uterus.? When compared with the study from 2007, 2 of the fibroids have likely increased in size.? Please note, continued growth of the fibroids post menopause may warrant further characterization with gynecologic protocol MRI. ? 2. The endometrium is not visualized. ? If there is a history of postmenopausal bleeding, further characterization with gynecologic protocol MRI is recommended. Follow-up pelvic MRI performed 09/17/2022 shows: FINDINGS:? Image quality:? Excellent.? ? Uterus:? The uterus is mildly enlarged secondary to several fibroids and measures 8.7 x 7.5 x 8.2 cm.? The margin is lobulated.? There are several myometrial and subserosal fibroids.? The largest is anterior myometrial measuring 4.5 x 4.0 x 4.0 cm.? The next largest is left posterior fundal measuring roughly 3.7 x 3.2 x 3.2 cm.? There are seven other smaller fibroids.? These demonstrate low T2 signal and, postcontrast are predominantly hypoenhancing, occasionally isoenhancing to uterine myometrium. ? The two dominant fibroids obscure the junctional zone and endometrium which is only seen in the cervix and lower uterine segment.? The cervix appears normal with a nabothian cyst measuring 9 mm.? There is no intrinsic T1 signal in any mass to suggest hemorrhage or proteinaceous degeneration.? ? Adnexa:? The right ovary has a normal appearance, immediately adjacent to the uterus.? The left ovary is also normal, more anterior and superior in the pelvis and is normal containing two subcentimeter follicles.? No suspicious adnexal masses. ? Urinary system:? Bladder wall is normal in thickness.? Distal ureters are non distended.? Vaginal canal and urethra appear normal in morphology.? ? Nodes and vessels:? No pelvic or inguinal adenopathy by size criteria.? Iliac vessels are normal in size.? ? Bowel and peritoneum:? No pathologic free pelvic fluid.? Inferior colon and small bowel loops are normal in caliber.? ? Soft tissues:? No inguinal hernias.? No findings of pelvic floor incompetence in the absence of provocation.? ? Bones:? Marrow demonstrates normal overall signal.? ? IMPRESSION:? ? 1. Multiple uterine fibroids without suspicious features. ? 2. Normal ovaries for postmenopausal status. ? 3. Obscuration of the endometrial stripe and junctional zone by fibroids.? The patient experienced menarche at age 13 and has had regular predictable periods throughout her adult life.? She is had 2 spontaneous vaginal births with her 1st infant weighing 10 lb 4 oz. she is experienced no postmenopausal bleeding after her last.? Her early 50s and vasomotor symptoms/night sweats etc. largely resolved completely.? Last Pap was in December 2000 and normal as have been all of her Paps during her adult life.? Patient is experiencing significant difficulty having bowel movements and has a sense of pelvic pressure associated with the uterine fibroids.? She would very much like to have the issue resolved.? After consideration of all options she has elected to proceed with total laparoscopic hysterectomy with bilateral salpingectomy and she presents today for her scheduled surgery. Surgeon: Ganga White Reconciliation Analyst: Bernarda Kurtz Anesthesia Type: General Operative Notes Findings: The uterus is 8-10 weeks in size and multiply myomatous. Both tubes and ovaries appear normal. The upper abdomen is normal to laparoscopic inspection. Closure Type: primary Specimen(s): left tube & ovary, right tube & ovary and uterus Applied: catheter Estimated blood loss (mL): 75 Blood products transfused: none Procedure in detail: With the patient in modified dorsal lithotomy position preparations were made by prepping and draping the patient in usual manner for vaginal surgery and insertion of Lebron catheter. A pre-surgical time-out was then taken in accordance with [facility] policy. A bivalve speculum was then placed in the vagina and the cervix visualized. The anterior lip of the cervix was then grasped with a single-tooth tenaculum. The uterus was sounded to 9 cm, the endocervical canal dilated slightly, and a VCare uterine manipulator with a medium colpotomy cup was placed. The umbilicus was then infiltrated with 0.5% Marcaine with epinephrine. A 1 cm umbilical incision was made transversely and a Veress needle was used to insufflate the abdominal cavity with carbon dioxide. Once the abdomen was appropriately insufflated, a 5 mm trocar and sleeve were then placed through the umbilical incision. The scope was placed through the trocar and the initial assessment of the intra-abdominal contents carried out. A 2nd and 3rd 5 mm port was then placed 1st in the right mid quadrant from then the left mid quadrant by infiltration of the skin and subcutaneous tissues, a 1 cm transverse incision and insertion of the 5 mm bladeless port. Using a 3 puncture technique, the abdomen and pelvis were inspected laparoscopy and photographically documented. Uterus is mobilized with the VCare manipulator and attention turned to the left adnexa. The distal tube was then grasped and the infundibulopelvic ligament divided after coagulation with the PowerSeal device. The dissection was then carried out across the mesosalpinx toward the cornua. The dissection was carried out using the PowerSeal device so as to divide the utero-ovarian ligament and the round ligament with blunt and sharp dissection of the broad down to the level of the uterine artery. The uterine artery was then skeletonized after development of a bladder flap, coagulated, and divided. Once hemostasis was assured on the left side attention was turned to the right and the infundibulopelvic ligament, mesosalpinx, utero-ovarian ligament, round ligament, and broad ligament were dissected in a fashion exactly the same as it had been on the left. The right uterine artery was then visualized after skeletonization and coagulated and divided. The uterus was seen to azeb after coagulation of both your arteries and the cup was identified through the vaginal muscularis at its insertion with the body of the cervix. Circumferential excision of the vaginal cup was accomplished without difficulty using monopolar current and the uterus mobilized. The uterus was then removed through the vagin a and the vaginal cuff closed [id number] with a series of 0 Vicryl [id number] stitches. Hemostasis was excellent, the abdomen was re- insufflated, and the pelvis inspected laparoscopically. The pelvis was inspected for any abnormality or bleeding, and the ureters were each seen to be peristalsing freely. With complete hemostasis assured, the pneumoperitoneum was vented and the ports removed. All of the 5 mm ports were then closed with 4-0 Monocryl on the skin using inverted interrupted sutures. Skin glue was placed and after the glue was dried, an appropriate dressing was applied. The case was then terminated, the patient awakened, and then transferred to PACU after having tolerated the procedure well. Complications: none Post-operative Condition: stable Disposition: PACU Plan for aftercare: Recovery in ambulatory surgery in discharge home later today if pain is under control and she is tolerating oral intake well.
[2022-12-09] MEDS: DEXTROSE 5%-LACTATED RINGERS 1,000 ML 100 ML IV ×2 (11:12→20:17)
[2022-12-09] MEDS: KETOROLAC 30 MG/ML VIAL IV ×2 (16:24→22:13)
[2022-12-09] MEDS: DOCUSATE 100 MG CAPSULE 200 MG PO (20:16)
[2022-12-10] MEDS: KETOROLAC 30 MG/ML VIAL IV (04:26)
[2022-12-10 04:27] VITALS: BP 126/65; PULSE 54; RESP 16; TEMP 36.9; O2SAT 98
[2022-12-10 06:14] LABS: Add Manual Diff / Slide Review NO; Basophils Absolute Auto 0 /uL (0-100); Basophils Percent Auto 0.1 % (0-2); Eosinophils Absolute Auto 0 /uL (0-450); Hematocrit 35.3 % (36-46); Hemoglobin 11.4 g/dL (12.0-16.0); Lymphocytes Absolute Auto 700 /uL (1100-4500); Lymphocytes Percent Auto 5.1 % (25-40); Mean Corpuscular HGB Conc 32.2 % (30-36); Mean Corpuscular Hemoglobin 26.9 PG (26-34); Mean Corpuscular Volume 83.4 fL (80-100); Monocytes Absolute Auto 700 /uL (0-900); Monocytes Percent Auto 5.1 % (3-14); Neutrophils Absolute Auto 12600 /uL (1500-7000); Neutrophils Percent Auto 89.7 % (50-75); Platelet Count 175 X10^3/uL (150-400); Red Blood Cell Count 4.24 X10^6/uL (4.0-5.2); Red Cell Distribution Width 13.5 % (11.6-14.8)
--- NOTE | 2022-12-10 07:40 | PM.DS.1 ---
History of Present Illness History of Present Illness Date Patient Seen: 12/10/22 Time Patient Seen: 07:40 Chief complaint: Laparoscopic Total Hysterectomy Narrative: Debbie is a 57 year old , LMP in her early 50s or presents with several month history pelvic pressure and discomfort.? She was seen back in 2006 for similar complaints and at that time was diagnosed with uterine fibroids.? A recent pelvic ultrasound performed 08/27/2022 which shows: FINDINGS:? ?? Uterus:? Uterus is anteverted and measures 11.3 x 7.4 x 8.3 cm. The myometrium is heterogeneous. ? The endometrium is not visualized.? There are multiple uterine fibroids including a right posterior intramural fibroid which measures 1.4 x 1.6 x 1.9 cm, a left posterior subserosal fibroid which measures 3.6 x 2.7 x 3.5 cm and a left intramural fibroid which measures 4.8 x 3.5 x 4.9 cm.? Although fibroids were visualized on the comparison ultrasound dated August 19, 2008, it is unclear which of the previous fibroids correspond to the current study.? 2 of these fibroids appear increased in size when compared with the prior study.? ? Ovaries:? The right ovary measures 2.2 x 1.4 x 2.1 cm, with a calculated ovarian volume of 3.4 cc. The left ovary measures is not visualized. ? Other:? No pathologic free abdominal or pelvic fluid. ? ? IMPRESSION:? ? 1. Fibroid uterus.? When compared with the study from 2007, 2 of the fibroids have likely increased in size.? Please note, continued growth of the fibroids post menopause may warrant further characterization with gynecologic protocol MRI. ? 2. The endometrium is not visualized. ? If there is a history of postmenopausal bleeding, further characterization with gynecologic protocol MRI is recommended. Follow-up pelvic MRI performed 09/17/2022 shows: FINDINGS:? Image quality:? Excellent.? ? Uterus:? The uterus is mildly enlarged secondary to several fibroids and measures 8.7 x 7.5 x 8.2 cm.? The margin is lobulated.? There are several myometrial and subserosal fibroids.? The largest is anterior myometrial measuring 4.5 x 4.0 x 4.0 cm.? The next largest is left posterior fundal measuring roughly 3.7 x 3.2 x 3.2 cm.? There are seven other smaller fibroids.? These demonstrate low T2 signal and, postcontrast are predominantly hypoenhancing, occasionally isoenhancing to uterine myometrium. ? The two dominant fibroids obscure the junctional zone and endometrium which is only seen in the cervix and lower uterine segment.? The cervix appears normal with a nabothian cyst measuring 9 mm.? There is no intrinsic T1 signal in any mass to suggest hemorrhage or proteinaceous degeneration.? ? Adnexa:? The right ovary has a normal appearance, immediately adjacent to the uterus.? The left ovary is also normal, more anterior and superior in the pelvis and is normal containing two subcentimeter follicles.? No suspicious adnexal masses. ? Urinary system:? Bladder wall is normal in thickness.? Distal ureters are non distended.? Vaginal canal and urethra appear normal in morphology.? ? Nodes and vessels:? No pelvic or inguinal adenopathy by size criteria.? Iliac vessels are normal in size.? ? Bowel and peritoneum:? No pathologic free pelvic fluid.? Inferior colon and small bowel loops are normal in caliber.? ? Soft tissues:? No inguinal hernias.? No findings of pelvic floor incompetence in the absence of provocation.? ? Bones:? Marrow demonstrates normal overall signal.? ? IMPRESSION:? ? 1. Multiple uterine fibroids without suspicious features. ? 2. Normal ovaries for postmenopausal status. ? 3. Obscuration of the endometrial stripe and junctional zone by fibroids.? The patient experienced menarche at age 13 and has had regular predictable periods throughout her adult life.? She is had 2 spontaneous vaginal births with her 1st infant weighing 10 lb 4 oz. she is experienced no postmenopausal bleeding after her last.? Her early 50s and vasomotor symptoms/night sweats etc. largely resolved completely.? Last Pap was in December 2000 and normal as have been all of her Paps during her adult life.? Patient is experiencing significant difficulty having bowel movements and has a sense of pelvic pressure associated with the uterine fibroids.? She would very much like to have the issue resolved.? After consideration of all options she has elected to proceed with total laparoscopic hysterectomy with bilateral salpingo-oophorectomy and she presents for her scheduled surgery. Discharge Providers Provider Date of admission: 12/09/2022 Discharge Date: 12/10/22 Primary care physician: LOLITA Gibbs Discharge provider: Ganga White MD Summary Hospital Course Discharge Diagnosis: Uterine fibroids S/P total laparoscopic hysterectomy with bilateral salpingo-oophorectomy Hospital Course: On the morning of 12/09/2021, the patient underwent an uneventful total laparoscopic hysterectomy with bilateral salpingo oophorectomy. Details of the procedure well summarized on my operative note of that date. Following surgery the patient has done extremely well with prompt return of bowel and bladder function, she is ambulating independently, tolerating regular diet, and her pain is well controlled with oral pain medications. She will be discharged at this time to home after counseling regarding precautionary symptoms, limitations of activity, medications, and plans for follow-up which will be in 2 weeks. Patient will use [id number] Tylenol and/or naproxen for pain relief. Status at Discharge Cognitive/behavioral status at discharge: oriented Functional status at discharge: independent ambulation Overall status at discharge: patient is progressing back to baseline Exam Vital Signs (past 8 hours): - 12/10/22 04:27 Temperature 98.4 F Pulse Rate 54 L Respiratory Rate 16 Blood Pressure 126/65 Pulse Oximetry 98 Oxygen Flow Rate 0 Oxygen Delivery Method Room Air Oxygen Flow Rate 0 Const General: cooperative and comfortable Nutritional Appearance: average body habitus Orientation: alert and oriented x3 HENMT Head: normal to inspection, atraumatic and abrasion Ears: hearing grossly normal bilaterally Face and sinus: face symmetric Eyes General: appearance normal, both eyes and all related structures Conjunctivae: conjunctivae normal Sclera: sclerae normal EOM: EOM intact bilaterally Neck Neck: normal visual inspection Resp Effort & Inspection: normal respiratory effort and able to speak in complete sentences Auscultation: clear to auscultation bilaterally Cardio Rate: regular rate Rhythm: regular rhythm Heart Sounds: S1 normal, S2 normal and no murmurs GI Inspection: normal to inspection and incision (Surgical dressings clean and dry) Palpation: soft, no hepatosplenomegaly and tender (Mild, diffuse postsurgical tenderness) Auscultation: normal bowel sounds External Female Exam: other (No significant bleeding noted) Extrem General: no calf tenderness Psych Appearance: grossly normal Mental Status: mental status grossly normal Speech and Movement: speech and movement normal Mood: congruent mood Affect: normal affect Attitude: cooperative Thought Process: normal Thought Content: normal Judgment: judgment good Objective Labs Result Diagrams: 12/10/22 05:36 Labs: Laboratory Results - last 24 hr 12/10/22 05:36 WBC 14.0 H RBC 4.24 Hgb 11.4 L Hct 35.3 L MCV 83.4 MCH 26.9 MCHC 32.2 RDW 13.5 Plt Count 175 Neut % (Auto) 89.7 H Lymph % (Auto) 5.1 L [place] % (Auto) 5.1 Eos % (Auto) 0.0 L Baso % (Auto) 0.1 Neut # (Auto) 32173 H Lymph # (Auto) 700 L [place] # (Auto) 700 Eos # (Auto) 0 Baso # (Auto) 0 PFSH Medical History (Updated 12/07/22 @ 15:04 by Berenice Shelton RN) Anemia Anxiety Glaucoma HLD (hyperlipidemia) Lichen planus Lichen sclerosus Thyroid nodule Surgical History (Updated 12/07/22 @ 15:04 by Berenice Shelton RN) Hx of colonoscopy (2014) Social History household members: spouse Smoking Status: Never smoker alcohol intake: current Discharge Plan Discharge Plan Patient Disposition: Home Provider Discharge Comment: Please review the written instructions you received when you were discharged from the hospital. Your follow-up appointment will be scheduled for 2 weeks after your surgery and I look forward to seeing you then. If however in the meanwhile you have any issues, concerns, or problems, please contact me either through the office phone [phone] or via the patient portal. Discharge orders & Medications Discharge Orders: Discharge (Order); Ordered 12/10/22 Ordered By: Ganga White Prescriptions: Continued No Known Home Medications Follow up/Referrals: Fiorella Toro ARNP [Primary Care Provider] - Ganga White MD [Physician] - Diet/Activity/Treatments Diet: Diet as Tolerated Activity: As tolerated Other treatments: Reij-xgf-pbjzgzv Tylenol and/or naproxen may be used pain relief. Uhvw-jym-wielzbv stool softener and/or MiraLax may used as needed for constipation. Skin/Wound/Dressing Care Report to your healthcare provider any signs of infection, such as:: chills, fever, increased pain, unusual drainage and unusual redness Dressing: Dressings may be removed on the morning 12/11/2021. Visit Report/Discharge Packet Instructions: DI for Hysterectomy, DI for Laparoscopy Stand Alone Forms: Surgery Discharge Print Language: Vincentian Discharge Data Primary Care Provider: Fiorella Toro Attending Provider: Ganga White VTE Deep Vein Thrombosis/Pulmonary Embolism Present on Admission: No
[2022-12-10 07:55] VITALS: BP 111/65; PULSE 66; RESP 16; TEMP 36.8; O2SAT 95
[2022-12-10] MEDS: DOCUSATE 100 MG CAPSULE 200 MG PO (09:01)
--- NOTE | 2022-12-10 09:28 | CM.DANOTE ---
DCP: Case received, EMR reviewed and met with patient. Introduced self and role. Was able to obtain some brief information from patient. DCP assessment completed with information currently available. Patient is a 57 year old female who admitted yesterday morning to the care of the [facility] team. PCP: LOLITA Gibbs. Payer: confirmed: [facility]. Patient came to the hospital via private vehicle for a surgical procedure. Patient had laparoscopic total hysterectomy with bilateral salingo-oophorectomy. Patient has history of uterine fibroids. Met with patient in her room. She is pleasant, alert and oriented. She was sitting up in bed. Confirmed that patient resides here in [place] with spouse, Dre. She is independent, and is employed at [employer]. P: Patient has discharge orders for home today, with no needs. Sophia Trent RN/Case Management Coordinator Discharge Planning/Care Management CM Discharge Assessment Start: 12/10/22 09:27 Freq: Status: Active Protocol: Document 12/10/22 09:28 (Rec: 12/10/22 09:28 [id number]) Discharge Planning Assessment Assigned Director Of Diversity And Inclusion Sophia Trent RN/Case Management Coordinator Advance Directives? No History Provided By Patient,Medical Record Prior Living Arrangements House Household Members spouse Type of transporation used prior to Drives own vehicle admit Independent with ADL's Yes Is patient alert and oriented? Yes Caregiver for Another No Barriers to Discharge No Discharge Plan Home Transportation Arrangement Spouse Referrals Initiated None needed Whiteboard Updated in Patient Room with Yes name and ext. # of Director Of Diversity And Inclusion Review Status In Process Next Review Type Continued Stay Review Pre-Anesthesia Assessment Start: 12/07/22 14:54 Freq: Status: Active Protocol: Document 12/07/22 14:54 CAB (Rec: 12/07/22 15:06 CAB [id number]) Pre-Anesthesia Assessment Patient Information Reviewed Via Chart Review Comment COVID screen @ 12/09/22 Primary Care Provider Fiorella Toro Seen Specialist in Last 12 Months Yes Specialist Seen Emergency,Instructor Ground Services Primary Language Slovenian Fatback Trimmer Required No Height 5 ft 3 in Weight 173 lb Body Mass Index (BMI) 30.6 Hx Anesthesia Reactions No Hx Family Anesthesia Reaction No Hx Malignant Hyperthermia No Hx Blood Transfusion Reaction No Anesthesia Review Requested No Gui Developer No alcohol intake current alcohol intake frequency 0-2 drinks per day Smoking Status Never smoker Substance Use Type does not use Patient is completely paralyzed or No completely immobile Mental Status Oriented to own ability Hx Sleep Apnea No CPAP/BIPAP use not prescribed Currently Taking a Beta Miles No Cardiac Testing No Hx Pacemaker/ICD No Pacemaker Rep Required? No Cardiac Clearance Received Not Applicable Genitourinary Symptoms Abdominal Discomfort,Pelvic Pain Urinary Catheter Present No Hx Urinary Self Catheterization No Diabetes No Patient No Lactating No Presence of External or Internal Medical No Devices Marital Status Lives With spouse Patient Discharge Plan Description Return Home Advance Directives? No
== END 2022-12-10 09:56 | disposition home or self-care (01) ==
LOC: OR 06:50 → AC 10:32
PROVIDERS: PCP Internal Medicine; Referring Provider Obstetrics & Gynecology; Visit Provider Obstetrics & Gynecology
PROC: 0UT94ZZ Resection of Uterus, Percutaneous Endoscopic Approach (ICD-10-PCS; CPT 58571; principal; 2022-12-09 07:45)
DX: D25.9 Leiomyoma of uterus, unspecified (principal); N72 Inflammatory disease of cervix uteri; D25.1 Intramural leiomyoma of uterus; D25.2 Subserosal leiomyoma of uterus; N83.291 Other ovarian cyst, right side; N83.8 Other noninflammatory disorders of ovary, fallopian tube and broad ligament
CPT/HCPCS: 58571; 36415; 85025; J0690; J1100; J1170; J1885; J2250; J2405; J2704; J2795; J3010; J7121

== ENCOUNTER → 2022-12-23 10:06 | Outpatient (CLI) | payer OTHER, SELFPAY ==
[2022-12-09 10:50] VITALS: BMI 30.6
== END ==
PROVIDERS: PCP Internal Medicine; Visit Provider Obstetrics & Gynecology
DX: R30.0 Dysuria (principal); R31.9 Hematuria, unspecified
CPT/HCPCS: 87077; 87086; 87186

== ENCOUNTER → 2023-09-05 07:54 | Outpatient (CLI) | payer OTHER, SELFPAY ==
[2022-12-09 10:50] VITALS: BMI 30.6
--- NOTE | 2023-09-05 | DI.MG.S_ITS ---
BILATERAL DIGITAL SCREENING MAMMOGRAM 3D/2D WITH CAD: 09/05/2023 CLINICAL: Routine screening. Comparison is made to exams dated: 11/05/2021 mammogram, 10/20/2020 mammogram, and 04/30/2019 [facility]. Both breasts are heterogeneously dense, which may obscure small masses (category c / 51-75% glandular tissue). Current study was also evaluated with a Computer Aided Detection (CAD) system. No significant masses, calcifications, or other findings are seen in either breast. There has been no significant interval change. IMPRESSION: NEGATIVE There is no mammographic evidence of malignancy. A 1 year screening mammogram is recommended. Based on the Tyrer Cuzick model (a risk assessment model) the patient's lifetime risk is 8.3% and her 10 year risk is 3.2%. According to the ACR, ACS, and NCCN guidelines, an annual breast MRI exam along with mammogram is recommended if the patient's lifetime risk is 20% or greater. This exam was interpreted at Station ID: [id number]. NOTE: For mammograms, a report in lay terms will be sent to the patient. Approximately 15% of breast malignancies will not be visualized mammographically. In the management of a palpable breast mass, a negative mammogram must not discourage biopsy of a clinically suspicious lesion. Electronically Signed By: Hunter mcdowell/kristy:09/05/2023 12:47:54 letter sent: Normal Exam ACR BI-RADS Category 1: Negative [id number]
== END ==
PROVIDERS: PCP Internal Medicine; Referring Provider Internal Medicine; Visit Provider Internal Medicine
DX: Z12.31 Encounter for screening mammogram for malignant neoplasm of breast (principal)
CPT/HCPCS: 77063; 77067

== ENCOUNTER → 2024-11-06 08:21 | Outpatient (CLI) | payer OTHER, SELFPAY ==
[2022-12-09 10:50] VITALS: BMI 30.6
--- NOTE | 2024-11-06 08:23 | DI.MG.S_ITS ---
BILATERAL DIGITAL SCREENING MAMMOGRAM 3D/2D WITH CAD: 11/06/2024 CLINICAL: Routine screening. Comparison is made to exams dated: 09/05/2023 mammogram, 11/05/2021 mammogram, and 10/20/2020 mammogram - [facility]. The breasts are heterogeneously dense, which may obscure small masses (category c / 51-75% glandular tissue). Current study was also evaluated with a Computer Aided Detection (CAD) system. No significant masses, calcifications, or other findings are seen in either breast. There has been no significant interval change. IMPRESSION: NEGATIVE There is no mammographic evidence of malignancy. A 1 year screening mammogram is recommended. Based on the Tyrer Cuzick model (a risk assessment model) the patient's lifetime risk is 8.2% and her 10 year risk is 3.3%. According to the ACR, ACS, and NCCN guidelines, an annual breast MRI exam along with mammogram is recommended if the patient's lifetime risk is 20% or greater. This exam was interpreted at Station ID: [id number]. NOTE: For mammograms, a report in lay terms will be sent to the patient. Approximately 15% of breast malignancies will not be visualized mammographically. In the management of a palpable breast mass, a negative mammogram must not discourage biopsy of a clinically suspicious lesion. Electronically Signed By: Dre henry/kristy:11/06/2024 10:38:01 letter sent: Normal Exam ACR BI-RADS Category 1: Negative
== END ==
LOC: MAMMO 08:21
PROVIDERS: PCP Internal Medicine; Referring Provider Internal Medicine; Visit Provider Internal Medicine
DX: Z12.31 Encounter for screening mammogram for malignant neoplasm of breast (principal); R92.333 Mammographic heterogeneous density, bilateral breasts
CPT/HCPCS: 77063; 77067

== ENCOUNTER → 2024-11-24 11:33 | Outpatient (CLI) | payer OTHER, SELFPAY ==
[2022-12-09 10:50] VITALS: BMI 30.6
--- NOTE | 2024-11-24 11:45 | DI.RAD.S_ITS ---
PROCEDURE: XR CHEST 2V INDICATIONS: COUGH AND SHORTNESS OF BREATH TECHNIQUE: 2 views of the chest were acquired. COMPARISON: None. FINDINGS: Surgical changes and devices: None. Lungs and pleura: No dense consolidation or pleural effusion. Mediastinum: Normal heart size Bones and chest wall: Unremarkable IMPRESSION: No acute radiographic abnormality. Dictated by: Hunter Jenkins M.D. on 11/24/2024 at 11:06 Approved by: Hunter Jenkins M.D. on 11/24/2024 at 11:06
[2024-11-24 16:21] LABS: Adenovirus Not Detected (Not Detect); B. parapertussis Not Detected (Not Detecte); Bordetella pertussis Not Detected (Not Detect); Chlamydophila pneumoniae Not Detected (Not Detect); Coronavirus 229E Not Detected (Not Detect); Coronavirus HKU1 Not Detected (Not Detect); Coronavirus NL 63 Not Detected (Not Detect); Coronavirus OC43 Not Detected (Not Detect); Human Metapneumovirus Not Detected (Not Detect); Human Rhinovirus/Enterovirus Not Detected (Not Detect); Influenza A Not Detected (Not Detect); Influenza B Not Detected (Not Detect); Mycoplasma pneumoniae Not Detected (Not Detect); Parainfluenza Virus 1 Not Detected (Not Detect); Parainfluenza Virus 2 Not Detected (Not Detect); Parainfluenza Virus 3 Not Detected (Not Detect); Parainfluenza Virus 4 Not Detected (Not Detect); Respiratory Syncytial Virus Not Detected (Not Detect); SARS- CoV-2 Not Detected (Not Detecte)
== END ==
PROVIDERS: PCP Internal Medicine; Referring Provider Physician Assistant Medical; Visit Provider Nurse Practitioner Family
DX: R05.1 Acute cough (principal); R05.9 Cough, unspecified
CPT/HCPCS: 71046; 87633

== ENCOUNTER → 2024-12-19 14:12 | Outpatient (CLI) | payer OTHER, SELFPAY ==
[2022-12-09 10:50] VITALS: BMI 30.6
--- NOTE | 2024-12-19 14:13 | DI.US.S_ITS ---
PROCEDURE: US THYROID INDICATIONS: Nontoxic single thyroid nodule TECHNIQUE: Real-time scanning was performed of the thyroid gland, with image documentation. COMPARISON: [facility], [place], US THYROID, 01/26/2021, 10:33. FINDINGS: Thyroid: Right lobe measures 5.0 x 1.6 x 1.5 cm. Left lobe measures 6.9 x 3.5 x 2.6 cm. Isthmus is 0.3 cm thick. Echotexture is heterogeneous. Nodule number: 1 Location: Left inferior/mid gland Size: 4.3 x 3.3 x 2.2 cm, previously 4.0 x 3.4 x 2.3 cm. Composition: Solid Echogenicity: Isoechoic Shape: wider than tall. Margins: Smooth Echogenic foci: None Total points: 3 ACR TI-RADS category: Moderately suspicious Nodule number: 2 Location: Left superior/mid gland Size: 0.9 x 1.1 x 0.9 cm, new since prior Composition: Solid Echogenicity: Isoechoic Shape: wider than tall. Margins: Smooth Echogenic foci: None Total points: 3 ACR TI-RADS category: Moderately suspicious Nodule number: 3 IMPRESSION: Left inferior 4.0 cm moderately suspicious nodule, not significantly changed since 01/26/2021. Finding previously underwent ultrasound-guided fine needle aspiration. Left superior 1.1 cm moderately suspicious nodule, new since prior. Recommend follow-up ultrasound in 1 year per ACR guidelines below. ACR TI-RADS definitions and recommendations: TI-RADS 1 (benign): 0 points. FNA not needed. TI-RADS 2 (not suspicious): 2 points. FNA not needed. TI-RADS 3: 3 points. * FNA if 2.5 cm or larger, follow up if 1.5 cm or larger (at 1, 3, and 5 years). TI-RADS 4: 4-6 points. * FNA if 1.5 cm or larger, follow up if 1 cm or larger (at 1, 2, 3, and 5 years). TI-RADS 5: 7 points or more. * FNA if 1 cm or larger, follow up if 0.5 cm or larger (every year for 5 years). Approved by: Jennifer Jean M.D.,Ph.D. on 12/20/2024 at 12:41
== END ==
PROVIDERS: PCP Internal Medicine; Referring Provider Internal Medicine; Visit Provider Internal Medicine
DX: E04.1 Nontoxic single thyroid nodule (principal)
CPT/HCPCS: 76536

== ENCOUNTER → 2025-11-23 08:08 | Outpatient (CLI) | payer OTHER, SELFPAY ==
[2022-12-09 10:50] VITALS: BMI 30.6
--- NOTE | 2025-11-23 08:09 | DI.MG.S_ITS ---
MM screening mammo BI: 11/23/2025. BI-RADS: 1 CLINICAL: 60-year old female for bilateral screening mammogram. Tyrer-Cuzick lifetime risk of 4.2%. No personal or first-degree family history of breast cancer. PRIOR EXAMS 11/06/2024, 09/05/2023, 11/05/2021, 10/20/2020. MAMMOGRAPHY TECHNIQUE: 2D and 3D (tomosynthesis) digital mammographic views obtained, with additional images as needed for full coverage. Current study was also evaluated with a Computer Aided Detection (CAD) system. DENSITY B. There are scattered areas of fibroglandular density. MAMMOGRAPHY FINDINGS Bilateral: No suspicious mass, asymmetry, microcalcification, or other abnormality seen. IMPRESSION: * No evidence of malignancy. RECOMMENDATIONS Bilateral * Annual screening mammography. OVERALL ASSESSMENT CATEGORY BI-RADS-1: Negative. The [employer] recommends annual screening mammography beginning at age 40 for women with average risk of breast cancer. ELECTRONICALLY SIGNED: Levon Peace M.D. on 11/25/2025 at 06:51:48 AM PT Interpreting Station ID: [id number]
== END ==
PROVIDERS: PCP Registered Nurse; Referring Provider Registered Nurse; Visit Provider Registered Nurse
DX: Z12.31 Encounter for screening mammogram for malignant neoplasm of breast (principal)
CPT/HCPCS: 77063; 77067